=== PATIENT | female | born 2005 | race Caucasian/White ===

== ENCOUNTER 2024-09-10 11:42 | Inpatient (IN) | payer MEDICAID, SELFPAY ==
[2024-09-10] VITALS (17 sets, daily range): BP systolic 97–137; BP diastolic 61–94; PULSE 56–114; RESP 14–17; TEMP 36.4–36.8; O2SAT 97–100; BMI 29.0
--- NOTE | 2024-09-10 12:02 | HP.PCM.OB_ITS ---
HPI - General General Date of Admission: 09/10/24 HPI Narrative FEDERICO HERNÁNDEZ, is a 19 F who presents at 40weeks in active labor. Was seen with [facility] in [place] with plans for induction of labor in 2 days. Upon arrival, complaint of vaginal itching, burning, swelling, and possible HSV outbreak. Per medical record, primary outbreak 12/2023 during early . Throughout patient states she had multiple outbreaks and suppressive therapy initiated at 22 weeks with Valacylovir 1gram PO once daily. Patient started OTC monistat about one week ago for 3 days thinking she also had a yeast infection. Since then, symptoms have worsened and thinks it is an HSV outbreak. She did forget to take valacyclovir the past 2 days. Denies any vaginal bleeding, fluid leakage, or other concerns. Contractions every 3-4 minute, becoming more regular and painful. Maternal Data Information MONIQUE Calculator Estimated Delivery Date Method Current WG Current Estimate 09/10/24 Manual 40w 0d PFSH PFSH Home Medications ?Medication ?Instructions ?Recorded ?Last Taken ?Type vit no.95-ferrous 1 tab PO DAILY 08/0209/02/24 08:00 History fumarate 28 mg-folic acid 800 mcg 1 TA B tablet () valacyclovir 1 gram tablet 1,000 mg PO DAILY hsv 09/1009/08/24 09:00 History (Valtrex) 1,000 mg Allergy/AdvReac Type Severity Reaction Status Date / Time No Known Allergies Allergy Verified 09/10/24 12:13 Social History Smoking Status: Current every day smoker tobacco type: e-cigarettes History Elective abortions Hx Para 0 Spontaneous abortions Hx # Term Pregnancies Ectopic pregnancies Hx # Pregnancies Multiple births # of living children ROS Constitutional Constitutional: Reports systems reviewed and no addt'l complaints, except as documented; Denies headache(s) Eyes Eyes: Denies acute decrease in peripheral vision, blurry vision or change in vision ENT HEENT: Reports systems reviewed and no addt'l complaints, except as documented Cardiovascular Cardiovascular: Denies chest pain or dizziness Respiratory/Chest Respiratory/Chest: Denies cough, dyspnea, dyspnea on exertion, shortness of breath at rest or shortness of breath with exertion Gastrointestinal Gastrointestinal: Denies abdominal pain, diarrhea, nausea or vomiting Genitourinary Genitourinary: Denies abdominal discomfort Musculoskeletal Musculoskeletal: Denies limited range of motion Integumentary Integumentary: Reports systems reviewed and no addt'l complaints, except as documented Neurologic Neurologic: Reports systems reviewed and no addt'l complaints, except as documented Psychiatric Psychiatric: Reports systems reviewed and no addt'l complaints, except as documented Endocrine Endocrinology: Reports systems reviewed and no addt'l complaints, except as documented Hematologic/Lymphatic Hematologic/Lymphatic: Reports systems reviewed and no addt'l complaints, except as documented Allergic/Immunologic Allergic/Immunologic: Reports systems reviewed and no addt'l complaints, except as documented Vital Signs Vital Signs Vital Signs: 09/10/24 10:51 09/10/24 10:51 09/10/24 10:52 Temperature Pulse Rate 114 H Respiratory Rate Blood Pressure 129/94 H 111/68 BP Systolic 129 111 BP Diastolic 94 68 09/10/24 10:52 09/10/24 10:52 09/10/24 10:52 Temperature 98.0 F Pulse Rate 113 H Respiratory Rate 16 Blood Pressure BP Systolic BP Diastolic Weight Weight: 179 lb 14.355 oz Body Mass Index (BMI) 29.0 Physical Exam Const alert and oriented x3 General Appearance: cooperative Orientation / Consciousness: awake, oriented to person, oriented to place and oriented to time Exam Limitations: no limitations HEENT normocephalic Head and Scalp: normal to inspection, normocephalic and atraumatic Face and Sinus: normal facial exam Eyes General Eye: normal appearance of both eyes Neck full ROM Chest Chest: symmetrical chest wall rise Resp normal respiratory effort and normal air movement Auscultation: clear to auscultation bilaterally Cardio regular rate, regular rhythm, S1 normal heart sound, S2 normal heart sound, no murmurs, no rub, no gallops and no clicks GI normal to inspection, nondistended, normoactive bowel sounds and non-tender appearance of the vagina normal Bladder / Kidney Exam: no CVA tenderness Speculum Exam - Vagina: vaginal erythema, vaginal swelling, vaginal discharge and other one small possible vulvar lesion Manual OB Exam: presentation cephalic, dilated 4cm, effaced 60 and station -2 Back/Spine normal ROM Extremity normal to inspection and full ROM Skin no rashes or lesions noted Neuro oriented x3, CN's II-XII intact bilaterally and moves all extremities Sensorium / Orientation: awake, alert and oriented to person Motor Exam: clonus absent Deep Tendon Reflexes: Rt Patellar (L4): 2+ and Lt Patellar (L4): 2+ Labs Labs Labs: No Data to Display HIV negative HBsAG negative HepC negative RPR negative GBS negative A Positive 1hr GCT 76 Rubella non immune HSV 1 IGG and HSV 2 IGG positive on 02/19/24 GC/CT negative Assessment & Plan (1) Active labor at term: (2) HSV (herpes simplex virus) infection: COMMENT: primary outbreak 12/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 Reviewed with patient recommendation for primary section to reduce risk of transmission. Consulted and agrees with plan of care, will be coming to hospital for evaluation and management 4) Ancef 2gram IVPB 5) Dr. Li collaborative physician and notified of patient status, above a ssessment, and plan.
[2024-09-10] MEDS: Lactated Ringers 1,000 ML 999 ML IV (12:25)
--- NOTE | 2024-09-10 12:28 | PCM.PN.BLA ---
Progress Note Pt here with contractions. Assessment & Plan Assessment/Plan (1) HSV (herpes simplex virus) infection: (2) Active labor at term: (3) Hypothyroidism affecting : (4) Anxiety: (5) 40 weeks gestation of : PLAN: Discussed r/b/a primary section with patient and questions answered. Consent obtained and patient desires to proceed. She is having HSV prodromal symptoms at this time. She did not take her Valtrex the last few days. She had a primary HSV outbreak first trimester of , with recurrent outbreaks in the third trimester. Pre op Ancef ordered. Patient desires to proceed with section.
[2024-09-10 12:40] LABS: Basophil# 0.03 X10^3/uL; Basophil% 0.2 % (0-1); Eosinophil# 0.04 X10^3/uL; Eosinophils% 0.3 % (0-5); Hematocrit 34.6 % (37-47); Hemoglobin 11.3 g/dL (12.0-15.0); Lymphocyte % 15.4 % (19-41); Mean Corp Hgb Conc 32.7 g/dL (32-36); Mean Corpuscular Hgb 26.7 pg (27.0-32.0); Mean Corpuscular Volume 81.6 fL (81-99); Mean Platelet Vol. 10.5 fl (6.2-12.0); Monocyte# 0.81 X10^3/uL; Monocyte% 6.2 % (0-10); NRBC Flagged by Analyzer 0 % (0-5); Neutrophil # 10.03 X10^3/uL (2.7-7.7); Neutrophil % 77.4 % (47-70); Platelet Count 389 K/mm3 (150-450); RBC Distribution Width CV 14.1 % (11.6-14.6); RBC Distribution Width SD 40.7 fl (35.1-43.9); Red Blood Count 4.24 M/mm3 (4.2-5.4)
[2024-09-10] MEDS: Sodium Citrate/Citric Acid 30 ML UDC PO (12:42)
[2024-09-10] MEDS: Acetaminophen 500 MG Tablet 1000 MG PO ×2 (12:42→18:39)
[2024-09-10] MEDS: Cefazolin 2 GM in 0.9% Normal Saline (100mL Bag) 100 ML IV (13:03)
[2024-09-10 13:22] LABS: Syphilis Antibodies Nonreactive (Nonreactive)
--- NOTE | 2024-09-10 14:07 | PCM.OPRPT ---
Problems Associated Problem List Diagnoses (1) 40 weeks gestation of : (2) Anxiety: (3) HSV (herpes simplex virus) infection: (4) Hypothyroidism affecting : (5) Active labor at term: Operative Report (Standard) Operative Information Date of Procedure: 09/10/24 Pre-Operative Diagnosis: 40 week gestation, active labor, history of primary herpes outbreak in with recurrent outbreaks, current prodromal symptoms of HSV Post-Operative Diagnosis: As above Surgery/Procedure Performed: PLTCS via pfannenstiel incision medicare compliance auditor: Yes Stenciler: Marvin MEYER Tasks completed by surgery assistant: Closing and Retracting Type of Anesthesia: Spinal Procedure Start Time: 13:15 Procedure Stop Time: 14:10 Select all DRAINS/GRAFTS/IMPLANTS that apply: None Special Medications: None Estimated Blood Loss: 500 mL Fluids Replaced: 1000 mL Specimen collected: No Description of surgery: The patient was taken to the operating room where spinal anesthesia was induced and found to be adequate. She was prepped and draped in the dorsal supine position with a leftward tilt. A Pfannenstiel skin incision was made with a scalpel and carried down to the underlying layer of fascia. The fascia was incised in the midline. The fascial incision was extended laterally using Roque scissors. The fascia was elevated and dissected from the rectus muscles in a cephalad direction with sharp dissection. The rectus muscles were in the midline. The peritoneum was entered bluntly with good visualization of the bladder. The peritoneal incision was extended with lateral traction. A bladder blade was inserted. A low transverse incision was made on the uterus with a scalpel. The uterine incision was extended with traction cephalad and caudad. Membranes were ruptured upon entry for meconium stained fluid. The infant's head was elevated out of the pelvis and flexed. The head was delivered followed by the body without any traction, force, or delay. A vigorous viable male infant was delivered, and the cord was clamped and cut after slight delay. The infant was handed off to the awaiting nursery staff. The placenta was removed with manual extraction. The uterus was cleared of all clot and debris. The uterine incision was closed with 1-0 Vicryl in a running locked fashion. Several additional [id number] sutures were placed for hemostasis. Hemostasis was confirmed. Uterus was placed back into the abdomen. Don was placed over the hysterotomy. Hemostasis was again confirmed. The peritoneum was closed with 3-0 Vicryl in a running fashion. The subfascial space was irrigated and noted be hemostatic. The fascia was closed with STRATAFIX in a running fashion. Subcutaneous space was irrigated and noted to be hemostatic. The subcutaneous space was reapproximated using 3-0 Vicryl in a running fashion. The skin was closed with 4-0 Monocryl in a subcuticular fashion. A dressing was placed. Instrument, sharp, sponge counts were correct and the patient was taken to the recovery in stable condition. Surgical Findings: VMI in cephalic presentation. Meconium stained fluid. Normal appearing placenta with true knot in the cord. Normal appearing uterus and bilateral adnexa. Complications Complications: No Admit VTE Documentation VTE Present on Admission: No VTE Mechan Device Prophylaxis: SCD's
[2024-09-10] MEDS: Oxytocin 15 Units/NS 250ml 15 UNITS/250 ML IV.SOLN 83 UNITS IV (14:30)
[2024-09-10] MEDS: Ondansetron 4 MG/2 ML Vial IV (14:41)
[2024-09-10] MEDS: Ketorolac 30 MG/ML Syringe IV ×2 (14:48→20:53)
[2024-09-10] MEDS: 0.9% Saline Lock 10 ML Syringe IV (20:54)
[2024-09-10] MEDS: Acyclovir 200 MG Capsule 400 MG PO (21:55)
[2024-09-11] MEDS: Acetaminophen 500 MG Tablet 1000 MG PO ×3 (00:44→12:18)
[2024-09-11 00:45] VITALS: PULSE 62; RESP 16; O2SAT 98
[2024-09-11] MEDS: 0.9% Saline Lock 10 ML Syringe IV ×2 (02:51→08:49)
[2024-09-11] MEDS: Ketorolac 30 MG/ML Syringe IV ×2 (02:51→08:48)
[2024-09-11 03:00] VITALS: BP 108/69; PULSE 63; RESP 16; TEMP 36.6; O2SAT 98
[2024-09-11 05:58] LABS: Hematocrit 31.4 % (37-47); Hemoglobin 10.3 g/dL (12.0-15.0); Mean Corp Hgb Conc 32.8 g/dL (32-36); Mean Corpuscular Hgb 27.5 pg (27.0-32.0); Mean Corpuscular Volume 83.7 fL (81-99); Mean Platelet Vol. 10.2 fl (6.2-12.0); Platelet Count 371 K/mm3 (150-450); RBC Distribution Width CV 14.2 % (11.6-14.6); RBC Distribution Width SD 42.8 fl (35.1-43.9); Red Blood Count 3.75 M/mm3 (4.2-5.4); White Blood Count 16.6 K/mm3 (4.4-11.0)
[2024-09-11 08:54] VITALS: BP 91/43; PULSE 54; RESP 16; TEMP 36.8; O2SAT 100
[2024-09-11] MEDS: DiphenhydrAMINE 25 MG Capsule PO (09:35)
[2024-09-11] MEDS: Senna/Docusate Sodium 1 Tablet PO (09:35)
[2024-09-11] MEDS: FLUCONAZOLE 150 MG TABLET PO (09:35)
[2024-09-11] MEDS: Acyclovir 200 MG Capsule 400 MG PO (09:35)
--- NOTE | 2024-09-11 11:10 | CASEMGMT ---
Social Work Assessment Labor and Delivery Unit Patient Address: [address] [place] [address] Phone number: [phone] Date of Referral: 09/10/24 Time of Referral: 12:33 Referred By: Savannah Hargrove Date of Intervention: 09/11/24 Time of Intervention: 11:12 Reason for Referral: Mental Health History obtained from: Medical records, mother of baby (MOB) and father of baby (FOB).? Household composition: MOB, FOB (Ismael Wood, age 20), FOB?s son Abel, age 3 and MOB and FOB?s son Obinna Wood, born via on 09/10/2024. FOB stated his son Abel lives with them full-time however does have contact wand visits with his mother. Patient's parent/guardian status: MOB and FOB have been together for almost 2 years and are not . MOB described a positive relationship with the FOB and denied any history of or current domestic violence. Medical History: : 1, Para, now 1. MOB received care through [facility] beginning at 9 weeks and 3 days. Visits were observed to be routine for the most part however there was a larger than usual gap where the MOB was seen at 14 weeks and not again until 22 weeks. Apgars: 8 and 9. Weight: 7lbs, 1oz. Sales Trainee: Not yet established; ROSENDA twill be scheduling [facility]. Educational Status: MOB earned her High School diploma and the FOB completed the 11th grade. Financial Status: MOB and FOB reported their income is sufficient to meet the needs of their family at this time. MOB is planning on being a bmoe-nq-rlsn mom (SAHM) for the time being however has plans to return to work once healed from . The FOB is currently employed full-time in a factory. Supplies: MOB and FOB reported they have all the supplies they need for baby at this time including but not limited to: Car seat, bassinet, diapers, bottles, formula and clothing. MOB reported she will get a crib closer to the time when she is ready for to transition out of the bassinet. Childcare/Caregiver(s):? MOB identified herself as the primary caregiver as a SAHM, the FOB will also provide care during the time he is home. Once the MOB returns to work, she will have a family member (wasn?t identified) provide childcare for . Transportation:? MOB and FOB reported they are both licensed drivers and have a reliable vehicle to take baby to and from all medical appointments. No transportation issues identified. Programs/Agencies Involved: MOB is currently receiving benefits through [employer] which includes Medicaid and food stamps.? MOB is planning on applying for pena assistance. MOB was previously on probation and later went to shelter for a probation violation which included an LYNETTE in 2022. Children Services/Legal Issues:? Denied. Behavioral Health Issues:?? Mental Health History:?? MOB has a history of anxiety.? MOB is not currently on medication however reported that anxiety has been successfully managed. MOB reported her anxiety is currently higher than normal just because was transferred to [facility]. MOB stated she is supposed to be able to get discharged today so she and the FOB can go be with which will help her feel better. MOB denied any history of or current depression. FOB denied any history of mental health. ?Substance Use History:?? MOB and FOB denied any history of drug or alcohol abuse with the exception of the previous LYNETTE with the MOB.? Mycology Teacher provided verbal education about associated risks/dangers which MOB verbalized she understood. ?Family History: MOB?s mother has a history of depression and drug abuse, MOB?s ?father has a history of alcohol and drug abuse, depression and has had more than one suicide attempt. ?MOB?s aunt has anxiety and MOB?s paternal cousin had depression and by suicide. ??FOB?s maternal grandmother is an alcoholic. Drug Screens:? None obtained at the time of this admission.? Family/Social Stressors: ?MOB and FOB verbalized some stress over being at a different hospital and anxiously waiting to be discharged so they can go be with . MOB and FOB denied any other stressors at this time. Support Systems: ??MOB identified her biggest support as the FOB.? MOB reported the paternal grandmother (PGM) will also be a support when needed. Depression/Shaken Baby/Safe Sleeping: emergency service worker provided verbal and written education on PPD, Safe Sleeping and Shaken Baby.? Mycology Teacher reviewed increased risks with PPD with the MOB. MOB and FOB verbalized an understanding.??? ASSESSMENT:?? MOB and FOB provided consent to social work visit. At the time of the visit, the MOB was sitting upright in her hospital bed and the FOB was lying on the couch. Both MOB and FOB were very cooperative, and verbally engaged. emergency service worker observed positive interaction between the MOB and FOB. MOB shared that ?s paternal grandfather is and the MOB does not have any contact with ?s maternal grandfather who hasn?t spoken to the MOB since he learned the MOB ?was . MOB reported she has limited contact with ?s maternal grandmother (MGM).? MOB reported she has started establishing boundaries with the MGM by telling her that if she continues to use/abuse drugs, the MGM will not be able to be a part of the ?s life because the MOB doesn?t want that for her family. At the end of the assessment, social work professor requested to speak with the MOB alone which MOB and FOB were both agreeable to. MOB reported feeling safe, denied any previous or current domestic violence, drug or alcohol abuse or unmanaged mental health issues with either herself or the FOB. Safe Plan of Care for infant related to substance use: N/A; not needed.? PLAN:? Baby to be discharged home when ready.? emergency service worker also provided written information on depression, depression resources and Help Me Grow as additional resources offered by social work professor which MOB and FOB accepted. No other services requested or indicated. Patricia Romero, MARKETING PR INTERN, WEB SERVICES MANAGER
--- NOTE | 2024-09-11 11:47 | PCM.PN.OB ---
Subjective Subjective Doing well per patient and nursing staff. Ambulating and taking PO without difficulty. Voiding and passing flatus. Pain controlled. Bottle feeding. Denies headache, visual changes, chest pain, shortness of breath, leg pain or increased bleeding. Lochia normal. donor services specialist seen patient this morning. Baby was transferred to [facility]. Objective Data Objective Data Vital Signs: Vital Signs Temp Pulse Resp BP Pulse Ox O2 Del Method 98.2 F 54 L 16 91/43 L 100 Room Air 09/11/24 08:54 09/11/24 08:54 09/11/24 08:54 09/11/24 08:54 09/11/24 08:54 09/11/24 08:54 Oxygen Delivery Method Room Air Weight: 179 lb 14.355 oz Body Mass Index (BMI) 29.0 Intake & Output: Intake and Output for Last 24 Hours 09/09/24 09/10/24 09/11/24 23:59 23:59 23:59 Intake Total 1226.25 / 1226.25 Output Total 950 / 950 600 / 600 Balance 276.25 / 276.25 -600 / -600 Lab / Micro Data 09/11/24 05:50 Labs: Laboratory Results - last 24 hr 09/10/24 12:23: WBC 13.0 H, RBC 4.24, Hgb 11.3 L, Hct 34.6 L, MCV 81.6, MCH 26.7 L, MCHC 32.7, RDW Std Deviation 40.7, RDW Coeff of Jelena 14.1, Plt Count 389, MPV 10.5, Immature Gran % (Auto) 0.500, Neut % (Auto) 77.4 H, Lymph % (Auto) 15.4 L, Sherman % (Auto) 6.2, Eos % (Auto) 0.3, Baso % (Auto) 0.2, Absolute Neuts (auto) 10.0 H, Absolute Lymphs (auto) 2.00, Nucleated RBC % 0, Syphilis Total Ab Nonreactive, Blood Type A POSITIVE, Antibody Screen NEGATIVE 09/11/24 05:50: WBC 16.6 H, RBC 3.75 L, Hgb 10.3 L, Hct 31.4 L, MCV 83.7, MCH 27.5, MCHC 32.8, RDW Std Deviation 42.8, RDW Coeff of Jelena 14.2, Plt Count 371, MPV 10.2 ROS Constitutional Constitutional: Reports systems reviewed and no addt'l complaints, except as documented; Denies headache(s) Eyes Eyes: Denies acute decrease in peripheral vision, blurry vision or change in vision ENT HEENT: Reports systems reviewed and no addt'l complaints, except as documented Cardiovascular Cardiovascular: Denies chest pain or dizziness Respiratory/Chest Respiratory/Chest: Denies cough, dyspnea, dyspnea on exertion, shortness of breath at rest or shortness of breath with exertion Gastrointestinal Gastrointestinal: Denies abdominal pain, diarrhea, nausea or vomiting Genitourinary Genitourinary: Denies abdominal discomfort Musculoskeletal Musculoskeletal: Denies limited range of motion Integumentary Integumentary: Reports systems reviewed and no addt'l complaints, except as documented Neurologic Neurologic: Reports systems reviewed and no addt'l complaints, except as documented Psychiatric Psychiatric: Reports systems reviewed and no addt'l complaints, except as documented Endocrine Endocrinology: Reports systems reviewed and no addt'l complaints, except as documented Hematologic/Lymphatic Hematologic/Lymphatic: Reports systems reviewed and no addt'l complaints, except as documented Allergic/Immunologic Allergic/Immunologic: Reports systems reviewed and no addt'l complaints, except as documented Physical Exam Const alert and oriented x3 General Appearance: cooperative Orientation / Consciousness: awake, oriented to person, oriented to place and oriented to time Exam Limitations: no limitations HEENT normocephalic Head and Scalp: normal to inspection, normocephalic and atraumatic Face and Sinus: normal facial exam Eyes General Eye: normal appearance of both eyes Neck full ROM Chest Chest: symmetrical chest wall rise Resp normal respiratory effort and normal air movement Auscultation: clear to auscultation bilaterally Cardio regular rate, regular rhythm, S1 normal heart sound, S2 normal heart sound, no murmurs, no rub, no gallops and no clicks GI normal to inspection, nondistended, normoactive bowel sounds and non-tender GI Narrative: Dressing clean dry and intact. Fundus firm 2 below U. appearance of the vagina normal Bladder / Kidney Exam: no CVA tenderness Back/Spine normal ROM Extremity normal to inspection and full ROM Skin no rashes or lesions noted Neuro oriented x3, CN's II-XII intact bilaterally and moves all extremities Sensorium / Orientation: awake, alert and oriented to person Motor Exam: clonus absent Deep Tendon Reflexes: Rt Patellar (L4): 2+ and Lt Patellar (L4): 2+ Assessment & Plan (1) Postoperative pain: (2) HSV (herpes simplex virus) infection: COMMENT: primary outbreak 12/2023 Positive HSV1 and HSV2 (3) Hypothyroidism affecting : (4) Anxiety: (5) S/P primary low transverse : PLAN: Plan 1) Routine care, POD #1 2) Vitals signs stable 3) Pain controlled 4) Bottle feeding 5) D/C and planning to go to [facility] to see 6) Follow up in 1 weeks and 6 weeks
--- NOTE | 2024-09-11 11:48 | DS.PCM_ITS ---
Providers Date of Admission: 09/10/24 Primary Care Physician: [facility] Reason For Visit: SCHEDULED SECTION Diagnosis Discharge Diagnosis (1) 40 weeks gestation of : Status: Acute Code(s): Z3A.40 - 40 weeks gestation of (2) Anxiety: Status: Acute Code(s): F41.9 - Anxiety disorder, unspecified (3) HSV (herpes simplex virus) infection: Status: Acute Code(s): B00.9 - Herpesviral infection, unspecified (4) Hypothyroidism affecting : Status: Acute Code(s): O99.280 - Endocrine, nutritional and metabolic diseases complicating , unspecified trimester; E03.9 - Hypothyroidism, unspecified (5) Active labor at term: Status: Acute (6) Postoperative pain: Status: Acute Code(s): G89.18 - Other acute postprocedural pain (7) S/P primary low transverse : Status: Acute Code(s): Z98.891 - History of uterine scar from previous surgery Plan 1) Admit to labor and delivery 2) Routine labs 3) Patient with possible current HSV outbreak and frequent outbreaks during . Reviewed with patient recommendation for primary section to reduce risk of transmission. Consulted and agrees with plan of care, will be coming to hospital for evaluation and management 4) Ancef 2gram IVPB 5) Dr. Li collaborative physician and notified of patient status, above assessment, and plan. Medications at Discharge Home Medications vit no.95-ferrous fumarate 28 mg-folic acid 800 mcg tablet () 1 tab PO DAILY 09/10/24 acetaminophen 500 mg tablet 1,000 mg (2 x 500 mg) PO Q6H #0 tabs 09/11/24 docusate sodium 100 mg capsule (Colace) 100 mg PO BID #60 caps 09/11/24 ibuprofen 600 mg tablet 600 mg PO Q6H #0 tabs 09/11/24 naproxen 375 mg tablet,delayed release 375 mg PO Q8H PRN PRN Pain ##30 09/11/24 oxycodone 5 mg tablet 5 mg PO Q6H 7 days #28 tabs 09/11/24 valacyclovir 1 gram tablet (Valtrex) 1,000 mg PO DAILY hsv #30 tabs 09/11/24 Hospital Course Summary of Care Provided Minutes Spent on Discharge: 15 Hospital Course: Presented on 09/10/24 for active labor at 40 weeks. Upon presentation had prodromal symptoms of HSV vulvar outbreak. Decision for Primary LTCS was made. transferred to [facility] for further care due to possible HSV infection. Discharge home on postoperative day #1. Weight / BMI Weight Weight: 179 lb 14.355 oz Body Mass Index (BMI) 29.0 ABG / Lab / Microbiology Data 09/11/24 05:50 Laboratory: Laboratory Results - last 24 hr 09/10/24 12:23: WBC 13.0 H, RBC 4.24, Hgb 11.3 L, Hct 34.6 L, MCV 81.6, MCH 26.7 L, MCHC 32.7, RDW Std Deviation 40.7, RDW Coeff of Jelena 14.1, Plt Count 389, MPV 10.5, Immature Gran % (Auto) 0.500, Neut % (Auto) 77.4 H, Lymph % (Auto) 15.4 L, [place] % (Auto) 6.2, Eos % (Auto) 0.3, Baso % (Auto) 0.2, Absolute Neuts (auto) 10.0 H, Absolute Lymphs (auto) 2.00, Nucleated RBC % 0, Syphilis Total Ab Nonreactive, Blood Type A POSITIVE, Antibody Screen NEGATIVE 09/11/24 05:50: WBC 16.6 H, RBC 3.75 L, Hgb 10.3 L, Hct 31.4 L, MCV 83.7, MCH 27.5, MCHC 32.8, RDW Std Deviation 42.8, RDW Coeff of Jelena 14.2, Plt Count 371, MPV 10.2 D/C Instructions Discharge Diet: No restrictions May resume sexual activity in: 6 weeks Weight Bearing Status: Full weight bearing Lifting Restricted to (Lbs): 20 Call your doctor if your incision/area has: Continuous Slow Oozing, Sudden Increased Bleeding, Increased Pain/ Swelling, Increased Redness, Foul Smelling Discharge and Swelling at the incision site Call your doctor if you observe: Fever of 101 or Higher, Inability to urinate, Inability to have a bowel movement, Using more than 1 pad per hour, Shortness of breath, Dizziness, Fainting spells, Chest pain, Increased palpitations (irregular heartbeat), Calf discomfort and Uncontrolled pain Suture Line Care: Avoid Pulling/Pushing Remove Dressing in: 1 week Cleanse incision/area with: Keep Dressing Clean & Dry DC O2, CPAP, BIPAP Needs Home O2 Discharge instructions: No Meaningful Use Info Meaningful Use Meaningful Use Diagnoses (Choose all that apply): None applicable Ischemic Stroke Statin Dosing Therapy Reference: STATIN DOSE THERAPY REFERENCE: * Patients > 75 years receive moderate or high dose statin therapy. * Patients 75 years or YOUNGER should receive HIGH intensity statin dose unless contraindicated. You will be required to document reason for non-treatment if statin daily dose does not meet guidelines. HIGH DOSE STATIN THERAPY DAILY Atorvastatin > than or = to 40 mg Rosuvastatin > than or = to 20 mg Amlodipine + Atorvastatin > than or = to 2.5/40 mg Ezetimibe + Simvastatin 10/80 mg Simvastatin 80mg Discharge Plan Admission Admit Date/Time: 09/10/24 11:42 Primary Reason for Your Visit: Section Attending Provider: Yasmine Li Primary Care Provider: Care Physician,No Primary Discharge Orders/Prescriptions Prescriptions: New acetaminophen 500 mg Tablet 1,000 mg PO Q6H Qty: 0 0RF ibuprofen 600 mg Tablet 600 mg PO Q6H Qty: 0 0RF oxycodone 5 mg Tablet 5 mg PO Q6H 7 Days Qty: 28 0RF naproxen 375 mg tablet,delayed release (DR/EC) 375 mg PO Q8H PRN PRN (Reason: Pain) Qty: 30 0RF docusate sodium [Colace] 100 mg capsule 100 mg PO BID Qty: 60 0RF Continued PNV cmb#95-ferrous fumarate-FA [] 28 mg iron- 800 mcg tablet 1 tab PO DAILY valacyclovir [Valtrex] 1 gram tablet 1,000 mg PO DAILY Qty: 30 3RF Referrals / Follow Up: Care Physician,No Primary [Primary Care Provider] - Disposition Disposition (needs filled in before D/C Order can be placed): Home, Self Care
[2024-09-11 12:31] VITALS: BP 106/76; PULSE 74; RESP 16; TEMP 36.7; O2SAT 98
== END 2024-09-11 13:05 | disposition home or self-care (01) | DRG 540 ==
LOC: WPOUT 11:45 → WP 12:04
PROVIDERS: Admitting Provider Advanced Practice Midwife; Referring Provider Advanced Practice Midwife; Visit Provider Obstetrics & Gynecology
DX: O98.32 Other infections with a predominantly sexual mode of transmission complicating childbirth (principal); A60.04 Herpesviral vulvovaginitis; F17.290 Nicotine dependence, other tobacco product, uncomplicated; F41.9 Anxiety disorder, unspecified; O99.334 Smoking (tobacco) complicating childbirth; O69.2XX0 Labor and delivery complicated by other cord entanglement, with compression, not applicable or unspecified; O48.0 Post-term pregnancy; O77.0 Labor and delivery complicated by meconium in amniotic fluid; O99.344 Other mental disorders complicating childbirth; Z3A.40 40 weeks gestation of pregnancy; Z37.0 Single live birth
CPT/HCPCS: 59025; 59050; 85025; 85027; 86780; 86850; 86900; 86901; 99221; A4216; G0378; J2405